=== PATIENT | male | born 1965 | race Caucasian/White ===

== ENCOUNTER 2021-05-20 04:03 | Inpatient (IN) | payer MEDICAID ==
[~2021-05-20] VITALS: Ht 177.8 cm; Wt 111.5 kg
--- NOTE | 2021-05-20 04:05 | NUR ---
PT BIB [facility] TO [facility], PT STATES HE WAS MONITORING HIS BP ON HIS WRIST MONITOR, AND HE SAW SOME VERY HIGH NUMBERS THAT HE DID NOT FEEL COMFORTABLE WITH AND CALLED 911. ON EMS ARRIVAL, THEY PLACED PT ON EKG AND SHOWED INFERIOR WALL STEMI. STEMI ALERT CALLED TO US AND PT ARRIVED TO ROOM AT 0405. PT STATES HE WAS HYPERTENSIVE AND WAS HAVING DISCOMFORT IN HIS CHEST. 0406 PT HAS PIV 18G TO LEFT AC, PER EMS 179/103 2ND PIV PLACED ON RIGHT AC 18G X1 ATTEMPT, AND FLUSHED EASILY. OTHER RN PLACING PT ON O2 NC, AND ON CR MONITOR, AND TRANSLUSCENT PADS PLACED ON PT. 0407 EKG DONE, AND MD SIGNED. DR FONTENOT TO BEDSIDE AND SPOKE WITH PT AND ADVISED OF THE PLAN. 0410 PT HAS HAD ASPIRIN HE TOOK 4 BABY ASA (81MG) AT HOME PRIOR TO EMS TRANSPORT. PT RECEIVED ZOFRAN ENROUTE 4MG ODT PER EMS. 0411 PTS BELONGINGS COLLECTED AND LABELED AND WENT WITH PT. 0412 178/106 BP. 0420 PT TRANSPORTED TO [facility].
[2021-05-20] MEDS ORDERED: ASPIRIN 325 MG TABLET PO STA (04:09)
[2021-05-20] MEDS ORDERED: MORPHINE SULFATE 4 MG/ML, 1ML ONE (04:12)
[2021-05-20] MEDS ORDERED: VERAPAMIL 2.5 MG/ML, 2ML ONE (04:20)
[2021-05-20] MEDS ORDERED: LIDOCAINE 2%, 20ML ONE (04:20)
[2021-05-20] MEDS ORDERED: BIVALIRUDIN 250 MG ONE ×2 (04:20→04:31)
[2021-05-20] MEDS ORDERED: MIDAZOLAM 1 MG/ML, 5ML ONE (04:20)
[2021-05-20] MEDS ORDERED: TICAGRELOR 90 MG TABLET ONE (04:20)
[2021-05-20] MEDS ORDERED: FENTANYL PF 100 MCG/2ML ONE ×2 (04:20→05:22)
[2021-05-20] MEDS ORDERED: HEPARIN 1,000 UNITS/ML, 10ML ONE (04:20)
[2021-05-20] MEDS ORDERED: NITROGLYCERIN 5 MG/ML, 10ML ONE (04:23)
[2021-05-20] MEDS ORDERED: ONDANSETRON 2MG/ML, 2ML ONE (04:29)
[2021-05-20 04:36] VITALS: BP 179/103
[2021-05-20 04:37] LABS: ALBUMIN 3.7 g/dL (3.4-5.0); ANION GAP 6 mmol/L (5-15); CALCIUM 8.4 mg/dL (8.5-10.1); CHLORIDE 108 mmol/L (98-107)
[2021-05-20 04:42] LABS: CREATININE 0.85 mg/dL (0.7-1.3)
[2021-05-20 04:43] LABS: TROPONIN I < 0.015 ng/mL (0.000-0.045)
[2021-05-20 04:44] LABS: INTERNATIONAL NORMALIZED RATIO 0.99 (0.93-1.1); PROTHROMBIN TIME 10.6 Seconds (9.6-11.5)
[2021-05-20 04:47] LABS: BASOPHILS % (AUTO) 1 % (0-1); EOSINOPHILS % (AUTO) 3 % (1-7); LYMPHOCYTES % (AUTO) 31 % (22-44); MEAN CORPUSCULAR HEMOGLOBIN 32.4 pg (27.5-34.5); MEAN CORPUSCULAR HGB CONC 34.1 g/dL (33.2-36.2); MEAN PLATELET VOLUME 10.4 fL (7.4-10.4); MONOCYTES % (AUTO) 9 % (2-9); NEUTROPHILS % (AUTO) 56 % (42-75); PLATELET COUNT 195 x10^3/uL (130-400); RED CELL DISTRIBUTION WIDTH 14.5 % (9.4-14.8)
[2021-05-20] MEDS ORDERED: MIDAZOLAM 1 MG/ML, 2ML ONE (05:22)
[2021-05-20] MEDS ORDERED: LORazepam 1MG TABLET ONE (06:40)
[2021-05-20] MEDS ORDERED: hydrALAzine 20 MG/ML, 1ML IV PRN (07:30)
[2021-05-20] MEDS ORDERED: ONDANSETRON 2MG/ML, 2ML IVPush PRN (07:30)
[2021-05-20] MEDS ORDERED: CARVEDILOL 3.125 MG TABLET PO SCH (07:30)
[2021-05-20] MEDS ORDERED: ACETAMINOPHEN 325 MG TABLET PO SCH (07:30)
[2021-05-20] MEDS: ASPIRIN 81 MG TABLET EC PO SCH (07:43)
[2021-05-20] MEDS ORDERED: ACETAMINOPHEN 325 MG TABLET PO PRN (08:00)
[2021-05-20] MEDS ORDERED: CALCIUM CARBONATE 500 MG TAB.CHEW ONE (13:04)
[2021-05-20] MEDS ORDERED: CALCIUM CARBONATE 500 MG TAB.CHEW PO PRN (13:30)
[2021-05-20] MEDS ORDERED: CARVEDILOL 6.25 MG TABLET ONE (17:33)
[2021-05-20] MEDS: CARVEDILOL 3.125 MG TABLET PO SCH (17:34)
[2021-05-20] MEDS ORDERED: TICAGRELOR 90 MG TABLET PO SCH (21:00)
[2021-05-20] MEDS ORDERED: ATORVASTATIN 80 MG TABLET PO SCH (21:00)
[2021-05-21 04:42] LABS: BASOPHILS % (AUTO) 0 % (0-1); EOSINOPHILS % (AUTO) 1 % (1-7); LYMPHOCYTES % (AUTO) 22 % (22-44); MEAN CORPUSCULAR HEMOGLOBIN 31.9 pg (27.5-34.5); MEAN PLATELET VOLUME 10.7 fL (7.4-10.4); MONOCYTES % (AUTO) 9 % (2-9); NEUTROPHILS % (AUTO) 68 % (42-75); PLATELET COUNT 159 x10^3/uL (130-400); RED BLOOD COUNT 4.84 x10^6/uL (4.38-5.82); RED CELL DISTRIBUTION WIDTH 14.8 % (9.4-14.8)
[2021-05-21 04:52] LABS: ANION GAP 6 mmol/L (5-15); CALCIUM 8.4 mg/dL (8.5-10.1); CHLORIDE 110 mmol/L (98-107); CHOLESTEROL, TOTAL 141 mg/dL (140-239); CREATININE 0.64 mg/dL (0.7-1.3); TRIGLYCERIDES 96 mg/dL (50-200); VLDL CHOLESTEROL 19 mg/dL (0-25)
[2021-05-21 04:54] LABS: CHOL/HDL RATIO 3.1; HDL CHOL % 33 % (26-37); HDL CHOLESTEROL (DIRECT) 46 mg/dL (40-60); LDL CHOLESTEROL,CALCULATED 76 mg/dL (54-169); LDL/HDL RATIO 1.7 (0.5-3.0)
[2021-05-21] MEDS: ASPIRIN 81 MG TABLET EC PO SCH (06:09)
[2021-05-21] MEDS ORDERED: CLOPIDOGREL 300 MG TABLET ONE (08:59)
[2021-05-21] MEDS ORDERED: CLOPIDOGREL 300 MG TABLET PO ONE (09:00)
[2021-05-21] MEDS: CARVEDILOL 3.125 MG TABLET PO SCH (09:05)
[2021-05-21] MEDS ORDERED: CLOP75TA PO (09:22)
[2021-05-21] MEDS ORDERED: ATOR-2 PO (09:22)
[2021-05-21] MEDS ORDERED: ASPI81TA45 PO (09:22)
[2021-05-21] MEDS ORDERED: CARV3.1212 PO (09:22)
[2021-05-22] MEDS ORDERED: CLOPIDOGREL 75 MG TABLET PO SCH (09:00)
== END 2021-05-21 09:14 | disposition left against medical advice (07) | DRG 246 ==
LOC: ED 07:25 → CSU 07:33
PROVIDERS: ADMIT Internal Medicine Cardiovascular Disease; ATTEND Internal Medicine Cardiovascular Disease
PROC: 027034Z Dilation of Coronary Artery, One Artery with Drug-eluting Intraluminal Device, Percutaneous Approach (ICD-10-PCS; principal; 2021-05-20)
PROC: 4A023N7 Measurement of Cardiac Sampling and Pressure, Left Heart, Percutaneous Approach (ICD-10-PCS; 2021-05-20)
PROC: B2111ZZ Fluoroscopy of Multiple Coronary Arteries using Low Osmolar Contrast (ICD-10-PCS; 2021-05-20)
PROC: B2151ZZ Fluoroscopy of Left Heart using Low Osmolar Contrast (ICD-10-PCS; 2021-05-20)
DX: I21.19 ST elevation (STEMI) myocardial infarction involving other coronary artery of inferior wall (principal); I50.31 Acute diastolic (congestive) heart failure; I47.2 Ventricular tachycardia; I11.0 Hypertensive heart disease with heart failure; I25.10 Atherosclerotic heart disease of native coronary artery without angina pectoris; I25.2 Old myocardial infarction; Z79.82 Long term (current) use of aspirin; Z87.891 Personal history of nicotine dependence
CPT/HCPCS: 36415; 92978; 93458; 99291; J3490; 71045; 80048; 80061; 82040; 84484; 85025; 85610; 85730; 87081; 87635; 93005; 93306; 99156; 99157; C1753; C1760; C1769; C1894; G0378; J0583; J1644; J2250; J2405; J3010; C1725; C1874; C1887; Q9967